=== PATIENT | female | born 1950 | race Caucasian/White ===

== ENCOUNTER 2016-05-17 06:20 | Emergency (ER) | payer MEDICARE, OTHER ==
[~2016-05-17] VITALS: Wt 63.5 kg
[~2016-05-17 06:20] MED LIST: CIPR500T4 PO; HYDR-3498 PO; IBUP-1542 PO; IBUP400T22 PO; ONDA4TAB35 PO; PHEN-538 PO; ZOF8 PO
[2016-05-17] MEDS ORDERED: CEFEPIME 2GM/50 ML (PMX) 50 ML IVPB STA (07:06)
[2016-05-17] MEDS ORDERED: SODIUM CHLORIDE 0.9% 1L BAG IV* STA (07:06)
[2016-05-17] MEDS ORDERED: ONDANSETRON 4 MG INJ IV STA (07:13)
[2016-05-17] MEDS ORDERED: morphine 4 MG/ML VIAL IV STA (07:13)
[2016-05-17 07:58] LABS: ADD UMIC YES; URINE BILIRUBIN (Dip) NEGATIVE (NEGATIVE); URINE BLOOD (Dip) 2+ (NEGATIVE); URINE COLOR LT. YELLOW (YELLOW); URINE GLUCOSE (Dip) NEGATIVE (NEGATIVE); URINE KETONES (Dip) NEGATIVE (NEGATIVE); URINE LEUKOCYTE ESTERASE (Dip) 1+ (NEGATIVE); URINE NITRITE (Dip) NEGATIVE (NEGATIVE); URINE TOTAL PROTEIN (Dip) NEGATIVE (NEGATIVE); URINE UROBILINOGEN (Dip) 0.2 E.U./dL (0.1-1.0)
[2016-05-17 08:03] LABS: BASOPHILS % 0.1 % (0.0-2.0); EOSINOPHILS % 0.2 % (0.0-7.0); HEMATOCRIT 39.1 % (37.0-47.0); HEMOGLOBIN 13.2 g/dl (12.0-16.0); LYMPHOCYTES # 1.8 10^3/ul (0.8-2.9); LYMPHOCYTES % 19.8 % (15.0-51.0); MEAN CORPUSCULAR HEMOGLOBIN 30.3 pg (29.0-33.0); MEAN CORPUSCULAR HGB CONC 33.8 g/dl (32.0-37.0); MEAN CORPUSCULAR VOLUME 89.8 fl (82.0-101.0); MEAN PLATELET VOLUME 9.7 fl (7.4-10.4); MONOCYTE # 0.5 10^3/ul (0.3-0.9); NEUTROPHIL # 6.7 10^3/ul (1.6-7.5); NEUTROPHILS % 73.9 % (39.0-77.0); PLATELET COUNT 195 10^3/UL (140-440); RED BLOOD COUNT 4.36 10^6/ul (4.20-5.40); RED CELL DISTRIBUTION WIDTH 13.7 % (11.5-14.5); UNCORRECTED WBC 9.1 10^3/ul (4.8-10.8); WHITE BLOOD COUNT 9.1 10^3/ul (4.8-10.8)
[2016-05-17 08:09] LABS: CONDITION 1
[2016-05-17] MEDS ORDERED: ASPI-664 PO (08:16)
[2016-05-17] MEDS ORDERED: DICLOFENAC SODIUM 37.5 MG/ML VIAL IV STA (08:16)
[2016-05-17] MEDS ORDERED: MTF1000T PO (08:17)
[2016-05-17] MEDS ORDERED: CLOP75TA27 PO (08:17)
[2016-05-17] MEDS ORDERED: SIMV20TA97 PO (08:17)
--- NOTE | 2016-05-17 08:26 | RADRPT ---
PROCEDURE: XR Chest. CLINICAL INDICATION: Sepsis TECHNIQUE: Single frontal chest x-ray. COMPARISON: 06/18/2015 FINDINGS: No acute infiltrate, pleural effusion or pneumothorax is identified. Cardiomediastinal silhouette i s within normal limits. The osseous structures are unremarkable. IMPRESSION: 1. Unremarkable chest x-ray. RPTAT: EE .Kamar Barker MD, MD Date Time Electronically viewed and signed by .Kamar Barker MD, on 05/17/2016 08:26 .R/
[2016-05-17 08:27] LABS: ALBUMIN 4.4 g/dl (3.3-4.9); CHLORIDE 98 mmol/L (97-110); POTASSIUM 3.9 mmol/L (3.5-5.1); SODIUM 141 mmol/L (135-144)
[2016-05-17 08:28] LABS: INR 0.96; PROTIME 12.8 Sec (12.2-14.2)
[2016-05-17 08:29] LABS: BILIRUBIN,INDIRECT 0.4 mg/dl (0-1.1); BILIRUBIN,TOTAL 0.4 mg/dl (0.2-1.3); CREATININE 0.66 mg/dl (0.44-1.00); PARTIAL THROMBOPLASTIN TIME 30.7 Sec (25.0-35.0)
[2016-05-17 08:30] LABS: ALANINE AMINOTRANSFERASE 19 IU/L (13-69); ALBUMIN/GLOBULIN RATIO 0.95; ALKALINE PHOSPHATASE 89 IU/L (42-121); ANION GAP 18 (8-16); ASPARTATE AMINO TRANSFERASE 25 IU/L (15-46); BLOOD UREA NITROGEN 12 mg/dl (7-20); CALCIUM 9.1 mg/dl (8.4-10.2); CARBON DIOXIDE 29 mmol/L (21-31); GLUCOSE 120 mg/dl (70-220)
[2016-05-17 08:43] LABS: TROPONIN-I < 0.012 ng/ml (0.00-0.12)
[2016-05-17] MEDS ORDERED: POLY17PO6 PO (13:28)
[2016-05-17] MEDS ORDERED: ONDA4TAB11 PO (13:28)
[2016-05-17] MEDS ORDERED: MAGN296S40 PO (13:28)
[2016-05-17] MEDS ORDERED: NAPR-688 PO (13:28)
[2016-05-17] MEDS ORDERED: LEVO500T72 PO (13:28)
[2016-05-17 13:39] VITALS: BP 102/56; PULSE 65; RESP 14; TEMP 98
--- NOTE | 2016-05-17 19:14 | ERD ---
DATE OF SERVICE: 05/17/2016 HISTORY OF PRESENT ILLNESS: This 66-year-old female presented to the emergency room feeling right f lank pain with increased urinary frequency and fever. She also vomited last night after which she h ad epigastric pain as well. States that epigastric pain is most of her pain and it is sharp. Vomit ing makes it worse, nothing makes it better. REVIEW OF SYSTEMS: A 10-point review of systems negative except as in the HPI. PAST MEDICAL HISTORY: Diabetes and high cholesterol. PAST SURGICAL HISTORY: Tonsillectomy. SOCIAL HISTORY: Denies tobacco, alcohol or drugs. FAMILY HISTORY: Noncontributory. PHYSICAL EXAMINATION VITAL SIGNS: Temperature 100.9, pulse 91, blood pressure 137/84, respirations 20, oxygen saturation 97% on room air. GENERAL: No acute distress. HEENT: Normocephalic, atraumatic. CARDIAC: Regular rate and rhythm without murmur. PULMONARY: Clear to auscultation bilaterally. NECK: Supple, no meningismus. ABDOMEN: Mild epigastric abdominal tenderness without guarding or rebound. No other abdominal tend erness, nondistended. Bowel sounds present. SKIN: No rashes or other lesions, slightly warm to touch. NEUROLOGIC: Alert and oriented x3. Cranial nerves II through XII intact, no cerebellar deficits, n ormal gait. VASCULAR: Distal pulses intact in all 4 extremities. EXTREMITIES: Capillary refill less than 1 second. DIAGNOSTIC LABORATORY DATA: CBC is within normal limits. BMP is also within normal limits. Lactic acid is not elevated at 1.2. Liver function tests are within normal limits. Troponin is negative. IMAGING: Chest x-ray interpretation: I see no acute process, I see no infiltrates. No pleural eff usion, no pneumothorax, no bony abnormalities. EKG interpretation: Normal sinus rhythm, normal axi s, no ST or T-wave changes concerning for acute ischemia. patient monitor interpretation: Normal s inus rhythm without arrhythmia. EMERGENCY DEPARTMENT COURSE AND MEDICAL DECISION MAKING: Likely urinary tract infection with pyelo nephritis. The patient also stated during her course that she is very constipated and seldom has francisca wel movements for the last couple of weeks. Her nausea and vomiting could be a combination of const ipation and the urinary tract infection. Urinalysis shows only 2 to 5 white cells but also 5 to 10 red blood cells. It is a clean catch specimen. Leukocyte esterase was positive. At present, it is described that she likely has a urinary tract infection. She was given 30 mL/kg of IV fluid as well as cefepime IV. She has no elevated white blood cell count or elevated lactic acid. Her vital sig ns are stable. The fever was easily reduced with IV fluid alone. She was given diclofenac as well as a small dose of morphine and Zofran. This reduced her pain dramatically and her nausea resolved completely. She is virtually asymptomatic and is feeling much better with stable vital signs and st [facility]. I believe it is appropriate to discharge her with outpatient medications and [facility] followup. I am also treating her constipation at her request. I am discharging her with 7 days' worth of Levaquin as well as Zofran ODT. Naproxen for pain. I am also giving her magnesium citrate and MiraLax. She will have close primary care followup with instructions to see her [facility] care doctor within the next 2 to 3 days and return to the emergency room if she has any concerning symptoms or return if symptoms are not controlled by medication. DISCHARGE DIAGNOSES: 1. Pyelonephritis. 2. Nausea, vomiting. 3. Constipation. 4. Acute abdominal pain. DISPOSITION: Home in stable condition. Dictated By: YULIET MANZANO/MARCELLA Conf#: [id number] DID#: [id number]
== END 2016-05-17 13:40 | disposition home or self-care (01) ==
LOC: E/R 06:20
DX: N12 Tubulo-interstitial nephritis, not specified as acute or chronic (principal); R11.2 Nausea with vomiting, unspecified; K59.00 Constipation, unspecified; E11.9 Type 2 diabetes mellitus without complications
CPT/HCPCS: 36415; 71010; 80053; 81001; 83605; 84484; 85025; 85610; 85730; 87040; 87086; 93005; 96374; 96375; 99285; J0692; J2270; J2405; J7030; 81003